=== PATIENT | male | born 1970 | race Caucasian/White ===

== ENCOUNTER 2020-05-12 08:31 | Day surgery (SDC) | payer OTHER ==
[2020-05-08 15:13] VITALS: BMI 25.8
[2020-05-12] MEDS ORDERED: ROPIVACAINE HCL 0.5% 30ML VIAL ONE (09:15)
[2020-05-12] MEDS ORDERED: MIDAZOLAM HCL 2 MG/2 ML SINGLE DOSE VIAL ONE ×3 (09:15→09:59)
[2020-05-12] MEDS ORDERED: SUCCINYLCHOLINE CHLORIDE 200 MG/10 ML SYRINGE ONE (10:09)
[2020-05-12] MEDS ORDERED: PROPOFOL 20 ML ONE (10:09)
[2020-05-12] MEDS ORDERED: ceFAZolin SODIUM 1 GM VIAL ONE (10:10)
[2020-05-12] MEDS ORDERED: GLYCOPYRROLATE 0.2 MG/1 ML VIAL ONE (10:10)
[2020-05-12] MEDS ORDERED: ONDANSETRON 4 MG/2 ML VIAL ONE (10:10)
[2020-05-12] MEDS ORDERED: DEXAMETHASONE SOD PHOSPHATE 4 MG/1 ML VIAL ONE (10:10)
[2020-05-12] MEDS ORDERED: LIDOCAINE HCL/PF 2% SDV 5ML VIAL ONE (10:10)
[2020-05-12] MEDS ORDERED: KETAMINE HCL 200 MG/20 ML VIAL ONE (10:15)
[2020-05-12] MEDS ORDERED: LIDOCAINE HCL 2% (20ML MULTI-DOSE VIAL) ONE (10:18)
[2020-05-12] MEDS ORDERED: LIDOCAINE HCL 2% (50ML VIAL) INF ONE (10:33)
[2020-05-12] MEDS ORDERED: CEFAZOLIN 1 GM in DEXTROSE 5%-WATER - 50 ML IVPB ONE (10:48)
[2020-05-12 11:46] VITALS: TEMP 97.7
[2020-05-12 12:46] VITALS: BP 122/68; PULSE 65
[2020-05-12] MEDS ORDERED: ONDANSETRON 4 MG/2 ML VIAL IVPUSH PRN (14:55)
[2020-05-12] MEDS ORDERED: oxyCODONE HCL 5 MG TABLET PO PRN ×2 (14:55)
[2020-05-12] MEDS ORDERED: LACTATED RINGERS SOLUTION 1,000 ML IV SCH (15:00)
== END 2020-05-12 13:07 | disposition home or self-care (01) ==
LOC: FASU 08:31
PROVIDERS: ATTEND Orthopaedic Surgery
PROC: 0LQP0ZZ Repair Left Lower Leg Tendon, Open Approach (ICD-10-PCS; 2020-05-12)
PROC: 0LQP0ZZ Repair Left Lower Leg Tendon, Open Approach (ICD-10-PCS; principal; 2020-05-12 10:15)
DX: S86.012A Strain of left Achilles tendon, initial encounter (principal); X58.XXXA Exposure to other specified factors, initial encounter; Y93.89 Activity, other specified; Y92.9 Unspecified place or not applicable; Y99.9 Unspecified external cause status
CPT/HCPCS: 94760